=== PATIENT | male | born 1995 | race African-American/Black ===

== ENCOUNTER 2018-05-17 21:14 | Emergency (ER) | payer SELFPAY ==
[~2018-05-17] VITALS: Ht 182.9 cm; Wt 65.3 kg
[2018-05-17 21:20] VITALS: BP 130/77
[2018-05-18] MEDS ORDERED: IBUPROFEN 600 MG TABLET. PO ONE
--- NOTE | 2018-05-18 00:12 | PHYS DOC ---
Past Medical History Past Medical History: No Pertinent History Alcohol Use: Occasionally Drug Use: None Adult General Chief Complaint Chief Complaint: ANKLE PROBLEM HPI HPI Patient is a 22 year old male who presents with 7:00 this morning was walking down some stairs and slid down a couple with his right foot. Patient has range of motion in the right ankle but states that it is painful and it hurts too badly to put weight on it. Patient can wiggle toes. Review of Systems Review of Systems Constitutional: Denies fever or chills [] Eyes: Denies change in visual acuity, redness, or eye pain [] HENT: Denies nasal congestion or sore throat [] Respiratory: Denies cough or shortness of breath [] Cardiovascular: No additional information not addressed in HPI [] GI: Denies abdominal pain, nausea, vomiting, bloody stools or diarrhea [] : Denies dysuria or hematuria [] Musculoskeletal: Denies back pain. Right ankle, posterior foot joint pain [] Integument: Denies rash or skin lesions [] Neurologic: Denies headache, focal weakness or sensory changes [] Endocrine: Denies polyuria or polydipsia [] All other systems were reviewed and found to be within normal limits, except as documented in this note. Current Medications Current Medications Current Medications Medications (Trade) Dose Ordered Sig/[facility] Start Time Stop Time Status Last Admin Dose Admin Ibuprofen (Motrin) 600 mg 1X ONCE 05/18/18 00:00 05/18/18 00:01 DC Allergies Allergies Allergies Coded Allergies Type Severity Reaction Last Updated Verified No Known Drug Allergies 05/17/18 No Physical Exam Physical Exam Constitutional: Well developed, well nourished, no acute distress, non-toxic appearance. [] HENT: Normocephalic, atraumatic, bilateral external ears normal, oropharynx moist, no oral exudates, nose normal. [] Eyes: PERRLA, EOMI, conjunctiva normal, no discharge. [] Neck: Normal range of motion, no tenderness, supple, no stridor. [] Cardiovascular:Heart rate regular rhythm, no murmur [] Lungs & Thorax: Bilateral breath sounds clear to auscultation [] Abdomen: Bowel sounds normal, soft, no tenderness, no masses, no pulsatile masses. [] Skin: Warm, dry, no erythema, no rash. [] Back: No tenderness, no CVA tenderness. [] Extremities: Right ankle, posterior right foot tenderness, no cyanosis, no clubbing, ROM not intact in right ankle due to pain, no edema. [] Neurologic: Alert and oriented X 3, normal motor function, normal sensory function, no focal deficits noted. [] Psychologic: Affect normal, judgement normal, mood normal. [] Current Patient Data Vital Signs Vital Signs Date Time Temp Pulse Resp B/P (MAP) Pulse Ox O2 Delivery O2 Flow Rate FiO2 05/17/18 21:20 98.6 66 14 130/77 (94) Room Air 98.6 EKG EKG [] Radiology/Procedures Radiology/Procedures right foot, right ankle. right tib/fib Impressions: No acute displaced fractures seen and read by Dr Landa Course & Med Decision Making Course & Med Decision Making Patient is a 22 year old male who presents with 7:00 this morning was walking down some stairs and slid down a couple with his right foot. Patient has range of motion in the right ankle but states that it is painful and it hurts too badly to put weight on it. Patient can wiggle toes. There is no swelling of the right foot or ankle, no bruising, and no deformities. Patient has tenderness around the posterior tib-fib, right ankle and the right posterior foot and radiates down towards the great toe and second toe. He states he has not taken anything for pain. I have ordered ibuprofen for the patient in the ED. Patient has a strong pedal pulse in the right foot. He states he has no known drug allergies and takes no medications daily. Patient denies any past medical history. There are no obvious acute dislocated fractures on xrays seen. A maribeth wrap is placed and patient should follow up with Ortho or their PCP is pain continue. Take Ibuprofen for pain. [] Dragon Disclaimer Dragon Disclaimer This electronic medical record was generated, in whole or in part, using a voice recognition dictation system. Departure Departure Impression: Primary Impression: Ankle injury Disposition: HOME, SELF-CARE Condition: STABLE Referrals: NO PCP (PCP) IZA RICH II, MD Patient Instructions: Ankle Sprain Additional Instructions: Follow up with your primary care or Ortho. Take Ibuprofen for pain and use ice. Problem Qualifiers Primary Impression: Ankle injury Encounter type: initial encounter Laterality: right Qualified Codes: S99.911A - Unspecified injury of right ankle, initial encounter JIM CORTÉS APRN May 18, 2018 00:12
--- NOTE | 2018-05-18 08:48 | RAD ---
Right tibia and fibula, 2 views, 05/17/2018: HISTORY: Fall, pain No fracture or bony abnormality is detected. The soft tissues are unremarkable. IMPRESSION: No acute abnormality is detected. Right ankle, 3 views, 05/17/2018: No fracture or dislocation is identified. The soft tissues are unremarkable. IMPRESSION: No acute right ankle abnormality is detected. Right foot, 3 views, 05/17/2018: There is a mild hallux valgus deformity with minimal spurring at the first MTP joint. No acute fracture or dislocation is identified. IMPRESSION: No acute bony abnormality is detected. Electronically signed by: Grupo Bergeron MD (05/18/2018 8:44 AM) [facility]
== END 2018-05-18 00:40 | disposition home or self-care (01) ==
LOC: ER 21:14
DX: S99.911A Unspecified injury of right ankle, initial encounter (principal); M79.671 Pain in right foot; W10.9XXA Fall (on) (from) unspecified stairs and steps, initial encounter; Y93.01 Activity, walking, marching and hiking; Y92.89 Other specified places as the place of occurrence of the external cause; Y99.8 Other external cause status
CPT/HCPCS: 73590; 73610; 73630; 99284